=== PATIENT | female | born 1965 | race Caucasian/White ===

== ENCOUNTER 2017-11-15 18:34 | Emergency (ER) | payer OTHER ==
[~2017-11-15] VITALS: Ht 162.6 cm; Wt 76.0 kg
[~2017-11-15 18:34] MED LIST: ANTIVERT25 MG PO; NOHOMEMEDS; PROMETHAZINE HC25 M1 PO
[2017-11-15 20:02] LABS: HEMATOCRIT 45.3 % (36.0-46.0); HEMOGLOBIN 15.4 G/DL (11.9-15.5); MCH 30.7 PG (29.0-34.0); MCV 90.2 FL (83-99); PLATELET COUNT 527 K/uL (156-360); RBC DIS.WIDTH-CV 13.6 % (11.8-14.6); RED BLOOD COUNT 5.02 M/uL (3.80-5.20); WHITE BLOOD COUNT 10.8 K/uL (4.1-10.2)
[2017-11-15 20:22] LABS: ALBUMIN 4.4 g/dL (3.2-4.8); CHLORIDE 104 mEq/L (99-109); POTASSIUM 4.1 mEq/L (3.7-5.4); SODIUM 140 mEq/L (136-147)
[2017-11-15 20:24] LABS: GLUCOSE 94 mg/dL (70-99); TOTAL PROTEIN 8.6 g/dL (6.4-8.3)
[2017-11-15 20:26] LABS: TOTAL BILIRUBIN 0.5 mg/dL (0.0-1.0)
[2017-11-15 20:28] LABS: ALKALINE PHOSPHATASE 103 IU/L (3-129); CREATININE 0.9 mg/dL (0.6-1.3); GFR ESTIMATE (CALCULATED) > 59 mL/min/
[2017-11-15 20:29] LABS: UREA NITROGEN (BUN) 9 mg/dL (9-23)
[2017-11-15 20:30] LABS: AST (GOT) 18 IU/L (2-34)
[2017-11-15 20:31] LABS: ALT (GPT) 12 IU/L (3-49); LIPASE 57 U/L (1.0-51.0)
[2017-11-15 22:30] LABS: APPEARANCE CLEAR ((CLEAR)); BILIRUBIN NEGATIVE; BLOOD NEGATIVE; COLOR YELLOW ((YELLOW)); GLUCOSE (STRIP) NEGATIVE; KETONES NEGATIVE; LEUKOCYTES NEGATIVE; NITRITE NEGATIVE; PROTEIN (STRIP) NEGATIVE; SPECIFIC GRAVITY 1.012 (1.000-1.030); UCUL ADDED? NO; UROBILINOGEN 0.2 MG/DL (0.2-1.0)
[2017-11-15] MEDS ORDERED: MOTION RELIEF25 MG PO (22:43)
[2017-11-15] MEDS ORDERED: REGLAN10 MG PO (22:43)
[2017-11-15 23:43] VITALS: BP 129/83
[2017-11-21] MEDS ORDERED: BUSPAR30 MG PO (09:03)
[2017-11-21] MEDS ORDERED: ZESTRIL10 MG PO (09:04)
[2017-11-21] MEDS ORDERED: FLEXERIL10 MG PO (09:04)
[2017-11-21] MEDS ORDERED: EFFEXOR XR150 MG PO (09:04)
[2017-11-21] MEDS ORDERED: ROXICODONE5 MG PO ×2 (09:05→09:06)
[2017-11-21] MEDS ORDERED: LYRICA75 MG PO (09:05)
== END 2017-11-15 23:45 | disposition home or self-care (01) ==
LOC: EME 18:34 → EXP 18:34
PROVIDERS: Physician Assistant
DX: G89.18 Other acute postprocedural pain (principal); R11.0 Nausea; M79.7 Fibromyalgia; I10 Essential (primary) hypertension
CPT/HCPCS: 74176; 80053; 81003; 83690; 85027; 99281; 99285; J1885; J2405; J7030

== ENCOUNTER 2018-02-20 10:24 | Emergency (ER) | payer OTHER ==
[~2018-02-20] VITALS: Ht 165.1 cm; Wt 84.1 kg
[~2018-02-20 10:24] MED LIST changes: +BUSPAR30 MG PO; +EFFEXOR XR150 MG PO; +FLEXERIL10 MG PO; +LYRICA75 MG PO; +MOTION RELIEF25 MG PO; +REGLAN10 MG PO; +ROXICODONE5 MG PO; +ZESTRIL10 MG PO
[2018-02-20 10:52] LABS: BASOPHIL (%) 0.8 % (0-1); BASOPHIL COUNT 0.1 K/uL (0-0.1); EOSINOPHIL (%) 1.7 % (0-5); EOSINOPHIL COUNT 0.2 K/uL (0-0.3); HEMATOCRIT 44.1 % (36.0-46.0); HEMOGLOBIN 15.2 G/DL (11.9-15.5); IMMATURE GRANULOCYTE (%) 0.2 % (0.0-0.7); LYMPHOCYTE (%) 29.1 % (15-42); LYMPHOCYTE COUNT 2.8 K/uL (1.0-2.8); MCH 30.2 PG (29.0-34.0); MCHC 34.5 G/DL (30.0-36.0); MCV 87.5 FL (83-99); MONOCYTE (%) 8.7 % (3-12); MONOCYTE COUNT 0.8 K/uL (0-0.8); NEUTROPHIL (%) 59.5 % (45-76); NEUTROPHIL COUNT 5.7 K/uL (1.8-6.4); PLATELET COUNT 387 K/uL (156-360); RBC DIS.WIDTH-CV 13.5 % (11.8-14.6); RBC DIS.WIDTH-SD 43.3 % (39-53); RED BLOOD COUNT 5.04 M/uL (3.80-5.20); WHITE BLOOD COUNT 9.5 K/uL (4.1-10.2)
[2018-02-20 11:00] LABS: ALBUMIN 4.4 g/dL (3.2-4.8); CHLORIDE 106 mEq/L (99-109); POTASSIUM 3.4 mEq/L (3.7-5.4); SODIUM 139 mEq/L (136-147)
[2018-02-20 11:02] LABS: GLUCOSE 118 mg/dL (70-99)
[2018-02-20 11:04] LABS: TOTAL BILIRUBIN 0.8 mg/dL (0.0-1.0)
[2018-02-20 11:06] LABS: ALKALINE PHOSPHATASE 82 IU/L (3-129); GFR ESTIMATE (CALCULATED) > 59 mL/min/
[2018-02-20 11:07] LABS: UREA NITROGEN (BUN) 11 mg/dL (9-23)
[2018-02-20 11:08] LABS: AST (GOT) 18 IU/L (2-34)
[2018-02-20 11:09] LABS: ALT (GPT) 14 IU/L (3-49)
[2018-02-20 12:06] LABS: LIPASE 30 U/L (1.0-51.0)
[2018-02-20 13:46] VITALS: BP 125/80
== END 2018-02-20 12:54 | disposition home or self-care (01) ==
LOC: EME 10:24
PROVIDERS: Emergency Medicine
DX: R07.89 Other chest pain (principal); I10 Essential (primary) hypertension; F32.9 Major depressive disorder, single episode, unspecified; F41.9 Anxiety disorder, unspecified; M79.7 Fibromyalgia; Z98.1 Arthrodesis status
CPT/HCPCS: 71045; 71275; 80053; 81003; 83690; 85025; 85379; 85610; 93005; 99281; 99285; J2270; J2405; J3010; J7030